=== PATIENT | male | born 1975 | race Two or more races ===

== ENCOUNTER 2023-06-23 14:49 | Emergency (ER) | payer MEDICAID ==
[~2023-06-23] VITALS: Ht 175.3 cm; Wt 75.0 kg
[2023-06-23 14:57] VITALS: TEMP 98.3
[2023-06-23 15:05] VITALS: BP 134/76; PULSE 66; RESP 18
== END 2023-06-23 15:29 | disposition left against medical advice (07) ==
LOC: EMS 14:50 → EDBD 14:50 → EMS 15:29
DX: F10.20 Alcohol dependence, uncomplicated (principal); F12.90 Cannabis use, unspecified, uncomplicated; F15.90 Other stimulant use, unspecified, uncomplicated; Y90.9 Presence of alcohol in blood, level not specified
CPT/HCPCS: 99281; Z7502